=== PATIENT | female | born 1965 | race African-American/Black ===

== ENCOUNTER 2023-03-08 11:47 | Emergency (ER) | payer OTHER, MEDICAID ==
[~2023-03-08] VITALS: Ht 157.5 cm; Wt 118.0 kg
[~2023-03-08 11:47] MED LIST: DOCU-150 PO; LINA145C PO
[2023-03-08 11:54] VITALS: O2SAT 98
[2023-03-08] MEDS ORDERED: TETRACAINE 0.5% OPHTH DROPS 4ML LEFTEYE ONE (12:30)
[2023-03-08] MEDS ORDERED: FLUORESCEIN SODIUM 1MG/STRIP LEFTEYE ONE (12:30)
[2023-03-08] MEDS ORDERED: POLY15DR31 LEFTEYE (12:32)
[2023-03-08 13:59] VITALS: BP 157/98; PULSE 89; RESP 18; TEMP 98.5
== END 2023-03-08 14:02 | disposition home or self-care (01) ==
LOC: ER 11:47
DX: H11.32 Conjunctival hemorrhage, left eye (principal); F41.9 Anxiety disorder, unspecified; F32.9 Major depressive disorder, single episode, unspecified; I10 Essential (primary) hypertension; Z98.51 Tubal ligation status; Z90.710 Acquired absence of both cervix and uterus
CPT/HCPCS: 99282